=== PATIENT | male | born 1990 | race Caucasian/White ===

== ENCOUNTER 2020-09-21 15:11 | Outpatient (RCR) | payer BC ==
[2020-09-25] MEDS ORDERED: OMEP20TA7 PO (11:31)
[2020-10-02] MEDS ORDERED: CEPH500T PO (10:12)
[2020-10-02] MEDS ORDERED: TRAM50TA3 PO (10:12)
== END 2020-12-20 | disposition home or self-care (01) ==
LOC: LAB 15:11
PROVIDERS: ATTEND Urology
DX: I86.1 Scrotal varices (principal)
CPT/HCPCS: 89320

== ENCOUNTER → 2020-09-21 | Outpatient (CLI) | payer BC ==
--- NOTE | 2020-09-21 16:25 | Diagnostic Imaging Report ---
EXAMINATION: US Scrotum w/ Duplex TECHNIQUE: Multiple realtime norris images were obtained of the scrotum in various projections bilaterally. Color Doppler images were also obtained. HISTORY: Varicocele. COMPARISON: None available. FINDINGS: The right testis has a homogeneous echogenic appearance without intratesticular mass or hyperemia, and measures 2.3 x 3.4 x 2.3 cm. The right epididymis is normal. No extratesticular mass. No hydrocele or varicocele. The left testis has a homogeneous echogenic appearance without intratesticular mass or hyperemia, and measures 2.2 x 3.4 x 2.5 cm. The left epididymis is normal. No extratesticular mass. There are multiple dilated veins in the left pampiniform plexus which increase on Valsalva patent with a varicocele. No hydrocele. Color and pulsed Doppler imaging demonstrates symmetric, flow with normal arterial waveforms obtained from each testis. IMPRESSION: 1. A left-sided varicocele. 2. Otherwise unremarkable scrotal ultrasound. Dictated by: Dictated on workstation # [id number]
== END ==
LOC: RAD 15:05
PROVIDERS: ATTEND Urology
DX: I86.1 Scrotal varices (principal)
CPT/HCPCS: 76870

== ENCOUNTER 2020-09-25 05:35 | Outpatient (RCR) | payer BC ==
[~2020-09-25] VITALS: Ht 180.3 cm; Wt 81.8 kg
[2020-09-25] MEDS ORDERED: OMEP20TA7 PO (11:31)
== END 2020-09-30 10:15 | disposition home or self-care (01) ==
LOC: PREOP 05:35
PROVIDERS: ATTEND Urology
DX: Z01.818 Encounter for other preprocedural examination (principal)

== ENCOUNTER 2020-10-02 07:26 | Day surgery (SDC) | payer BC ==
[2020-10-02] VITALS (11 sets, daily range): BP systolic 109–138; BP diastolic 67–92
[~2020-10-02] VITALS: Ht 180.3 cm; Wt 81.8 kg
[~2020-10-02 07:26] MED LIST: OMEP20TA7 PO
[2020-10-02] MEDS ORDERED: ONDANSETRON 4 MG/2 ML (SDV) Z0FRAN ONE ×2 (07:41→07:47)
[2020-10-02] MEDS ORDERED: FAMOTIDINE 20MG/2ML IV (PEPCID) IV ONE (07:45)
[2020-10-02] MEDS ORDERED: ONDANSETRON 4 MG/2 ML (SDV) Z0FRAN IV ONE (07:45)
[2020-10-02] MEDS ORDERED: SEVOFLURANE (ULTANE) 15 ML INHAL SOLN ONE (07:47)
[2020-10-02] MEDS ORDERED: MIDAZOLAM 2 MG/2 ML (VERSED) VIAL ONE (07:47)
[2020-10-02] MEDS ORDERED: proPOfol 200 MG/20 ML (DIPRIVAN) VIAL IV ONE (07:47)
[2020-10-02] MEDS ORDERED: LIDOCAINE PF 2% 5 ML (XYLOCAINE) VIAL ONE (07:47)
[2020-10-02] MEDS ORDERED: fentaNYL INJECTION 100 MCG/2 ML AMP ONE ×2 (07:47→09:12)
[2020-10-02] MEDS: LACTATED RINGERS 1,000 ML IV PRN ×2 (07:56→10:05)
[2020-10-02] MEDS ORDERED: LEVOFLOXACIN 250 MG/50 ML IVPB 50 ML IV ONE (08:00)
--- NOTE | 2020-10-02 08:52 | Progress Note-Pre Operative ---
Pre-Operative Progress Note H&P Reviewed The H&P was reviewed, patient examined and no changes noted. Date Seen by Provider: Oct 02, 2020 Time Seen by Provider: 08:51 Date H&P Reviewed: Oct 02, 2020 Time H&P Reviewed: 08:51 Pre-Operative Diagnosis: LT VARICOCELE EWA BREWER MD Oct 02, 2020 08:52
--- NOTE | 2020-10-02 08:53 | Progress Note-Post Operative ---
Post-Operative Progess Note Surgeon (s)/Logging Shovel Operator (s) Surgeon EWA BREWER MD Logging Shovel Operator: DO ALIDA Pre-Operative Diagnosis LT VARICOCELE AND SPRMATIC CORD LIPOMA Post-Operative Diagnosis SAME Procedure & Operative Findings Date of Procedure 10/02/20 Procedure Performed/Findings LT SPERMATIC VEIN LIGATION AND EXCISION OF LIPOMA Anesthesia Type GENERAL Estimated Blood Loss Estimated blood loss (mL): NEGLIGIBLE Specimens/Packing Specimens Removed 2 SPERMATIC VEINS Packing: NONE EWA BREWER MD Oct 02, 2020 08:53
--- NOTE | 2020-10-02 08:55 | Discharge Inst-Urology ---
Discharge Inst-Urology Reconcile Patient Problems Problems Reviewed?: Yes Final Diagnosis LT VARICOCELE Patient Instructions/Follow Up Plan/Assessment/Instructions Please make appointment to been seen in office in 2 weeks. Rest till then and scrotal support for 1 week Tomorrow may start showers, no bath Keep bowels soft and moving Increase oral fluids for 48 hours and then as needed. Diet as tolerated. If questions or concerns contact your physician Or seek help at emergency department. EWA BREWER MD Oct 02, 2020 08:55
--- NOTE | 2020-10-02 10:08 | Anesthesia-General Post-Op ---
General Patient Condition Mental Status/LOC: Same as Preop Cardiovascular: Satisfactory Nausea/Vomiting: Absent Respiratory: Satisfactory Pain: Controlled Complications: Absent Post Op Complications Complications None Follow Up Care/Instructions Patient Instructions None needed. Anesthesia/Patient Condition Patient Condition Patient is doing well, no complaints, stable vital signs, no apparent adverse anesthesia problems. No complications reported per nursing. ADRIÁN العلي CRNA Oct 02, 2020 10:08
[2020-10-02] MEDS ORDERED: TRAM50TA3 PO (10:12)
[2020-10-02] MEDS ORDERED: CEPH500T PO (10:12)
[2020-10-02] MEDS ORDERED: ONDANSETRON 4 MG/2 ML (SDV) Z0FRAN IVP PRN (10:15)
[2020-10-02] MEDS ORDERED: morphine INJ 10 MG/ML 1ML (SYR OR VIAL) IVP ONE (10:15)
[2020-10-02] MEDS ORDERED: ACETAMINOPHEN 500 MG TAB (TYLENOL) ONE (10:47)
[2020-10-02] MEDS ORDERED: ACETAMINOPHEN 500 MG TAB (TYLENOL) PO ONE (11:00)
--- NOTE | 2020-10-02 14:58 | OPERATIVE REPORT ---
DATE OF SERVICE: 10/02/2020 PREOPERATIVE DIAGNOSIS: Left varicocele. POSTOPERATIVE DIAGNOSES: Left varicocele and left spermatic cord lipoma. OPERATION PERFORMED: Excision of lipoma and left spermatic vein ligation. SURGEON: Ewa Brewer MD PARTS ORDER AND STOCK CLERK: Zachary Becker DO. ANESTHESIA: General. COMPLICATIONS: None. DESCRIPTION OF PROCEDURE: Under satisfactory general anesthesia, the patient in supine position, abdomen, genitalia and thigh were prepped and draped in the usual sterile fashion. Left inguinal incision was made along the direction of the skin crease down to the fascia. Bleeders were cauterized or ligated. The external oblique aponeurosis was incised along the direction of the fiber. The inguinal nerve was identified and preserved at all time. Spermatic cord was dissected up to the internal ring. An umbilical tape was put and held up to dilate the spermatic vein. Once spermatic vein was dissected, a good portion was excised and ligated with 3-0 silk ligature. Searching for the second vein, we found a lipoma and excision of the lipoma allowed us to see the second vein and it was dealt with similarly. There was no more vein. There was no vein in the inguinal floor. The artery was identified. The vas preserved. The testicle almost felt firm till the end of the procedure and the nerve was also preserved. Closure was performed in layer with external oblique with a running 3-0 chromic catgut, the Brian's fascia with few interrupted 3-0 plain and the skin with subcuticular 4-0 suture. Steri-Strips were applied . The needle, sponge, instrument counts were correct x2. Estimated blood loss was negligible. The patient tolerated the procedure and anesthesia well and was sent to recovery room in stable condition. Instruction was given to him preoperatively and to his postoperatively. Job ID: [id number] DocumentID: [id number] Dictated Date: 10/02/2020 09:58:56 Lap Maker Date: 10/02/2020 14:57:50 Dictated By: EWA BREWER MD
== END 2020-10-02 11:50 | disposition home or self-care (01) ==
LOC: SDC 07:26
PROVIDERS: ATTEND Urology
DX: I86.1 Scrotal varices (principal); D17.6 Benign lipomatous neoplasm of spermatic cord; J45.909 Unspecified asthma, uncomplicated; G43.909 Migraine, unspecified, not intractable, without status migrainosus; K21.9 Gastro-esophageal reflux disease without esophagitis; Z79.899 Other long term (current) drug therapy; Z88.0 Allergy status to penicillin; Z88.1 Allergy status to other antibiotic agents
CPT/HCPCS: 87081

== ENCOUNTER → 2021-04-12 | Outpatient (CLI) | payer BC ==
[~2021-04-12] MED LIST changes: +CEPH500T PO; +TRAM50TA3 PO
== END ==
LOC: LAB 15:45
DX: I86.1 Scrotal varices (principal)
CPT/HCPCS: 89320